=== PATIENT | male | born 1995 | race Caucasian/White ===

== ENCOUNTER 2022-11-06 04:16 | Emergency (ER) | payer MEDICAID ==
[2022-11-06] MEDS ORDERED: Bacitracin Oint 1 GM U/D Packet TOP ONE (04:51)
[2022-11-06] MEDS ORDERED: Diphtheria,Pertussis(Acell),Tetanus Vaccine 0.5 ML Syringe IM ONE (05:19)
== END 2022-11-06 06:04 | disposition home or self-care (01) ==
LOC: JP.ED 04:16
DX: S01.01XA Laceration without foreign body of scalp, initial encounter (principal); Z23 Encounter for immunization; Y04.2XXA Assault by strike against or bumped into by another person, initial encounter
CPT/HCPCS: 12002; 90471; 90715; 99282; 99283-25